=== PATIENT | male | born 1985 | race American Indian/Alaskan Native ===

== ENCOUNTER 2017-09-02 07:27 | Emergency (ER) | payer OTHER ==
[2017-09-02 07:43] VITALS: BP 120/75
[2017-09-02] MEDS ORDERED: MOTRIN PO ONE (08:21)
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
--- NOTE | 2017-09-02 10:20 | XRay Report ---
LEFT KNEE, 3 views: History: Left knee pain. The bony architecture is intact without evidence of fracture or dislocation. No significant soft tissue abnormality is seen. IMPRESSION: Normal left knee.
--- NOTE | 2017-09-02 10:21 | XRay Report ---
LUMBOSACRAL SPINE, 3 VIEWS: History: Back pain Findings: The vertebral bodies, disk spaces and posterior elements are intact. No compression deformity or malalignment. The SI joints are symmetric and unremarkable. Impression: 1. No evidence for acute injury to the lumbar spine.
--- NOTE | 2017-09-02 10:22 | XRay Report ---
CERVICAL SPINE, 3 views: History: Neck pain. Findings: The vertebral bodies, disk spaces, posterior elements and prevertebral soft tissues are unremarkable. The dens is intact. No acute fracture or malalignment is identified. Impression: 1. No evidence for acute injury to the cervical spine.
--- NOTE | 2017-09-02 10:22 | XRay Report ---
THORACIC SPINE, 2 VIEWS: HISTORY: back pain. Normal bone mineralization. No evidence for compression deformity, malalignment, or bone lesion. The posterior ribs are intact. The paraspinal soft tissues are within normal limits. IMPRESSION: Thoracic spine within normal limits.
== END 2017-09-02 10:35 | disposition home or self-care (01) ==
LOC: ED 07:27
DX: S13.4XXA Sprain of ligaments of cervical spine, initial encounter (principal); S86.912A Strain of unspecified muscle(s) and tendon(s) at lower leg level, left leg, initial encounter; S39.012A Strain of muscle, fascia and tendon of lower back, initial encounter; V49.59XA Passenger injured in collision with other motor vehicles in traffic accident, initial encounter; Y93.89 Activity, other specified; Y99.8 Other external cause status; Y92.488 Other paved roadways as the place of occurrence of the external cause
CPT/HCPCS: 72040; 72072; 72100

== ENCOUNTER 2020-12-29 11:46 | Emergency (ER) | payer SELFPAY | END 2020-12-29 12:49 | disposition left against medical advice (07) | LOC: ED 11:46 | DX: R36.9 Urethral discharge, unspecified (principal); Z53.21 Procedure and treatment not carried out due to patient leaving prior to being seen by health care provider ==

== ENCOUNTER 2020-12-29 12:21 | Emergency (ER) | payer OTHER | END 2020-12-29 14:09 | disposition left against medical advice (07) | LOC: ED 12:21 | DX: Z00.00 Encounter for general adult medical examination without abnormal findings (principal); Z53.21 Procedure and treatment not carried out due to patient leaving prior to being seen by health care provider ==